=== PATIENT | male | born 1935 | race Caucasian/White ===

== ENCOUNTER → 2016-12-02 | Outpatient (CLI) | payer MEDICARE ==
[~2016-12-02] VITALS: Ht 165.1 cm; Wt 73.0 kg
[~2016-12-02] MED LIST: AMLO5TAB2 PO; ASP81TEC PO; ASPI-983 PO; ASPI-999 PO; ATOR20TA66 PO; ATOR40TA70 PO; BENA20TA72 PO; BNZ40T PO; CATHETER FLUSH 10 ML SYR IV PRN; CEFU500T PO; CLOP75TA28 PO; CYAN10006 PO; FELO5TAB3 PO; FISH1CAP15 PO; FRSM40T PO; HCT25T PO; L.AC1CAP6 PO; LOVA20TA2 PO; MAGN400C PO; MAGN400T39 PO; METF-380 PO; METF500T4 PO; METO-352 PO; MTP50T PO; NAPR220C11 PO; OMEP20CA12 PO; REGADENOSON 0.4 MG/5 ML SYR (LEXISCAN) IV ONE; SITA100T12 PO; SITA50TA PO; SPIR25TA3 PO; VIT B12 PO
[2016-12-02 09:06] VITALS: BP 144/80
[2016-12-02 09:08] VITALS: BP 161/82
--- NOTE | 2016-12-04 13:18 | STRESS TEST ---
PROCEDURE PHYSICIAN: MARILIA STEVENSON RESTING AND POST REGADENOSON TECHNETIUM 99M TETROFOSMIN SPECT CT IMAGING DATE OF PROCEDURE: 12/02/2016 ORDERING PHYSICIAN: Dr. Stevenson PRIMARY PHYSICIAN: Dr. Hartley CLINICAL DIAGNOSIS: Coronary artery disease, hypertension, hyperlipidemia. Baseline images were carried out after injection of 10.31 mCi technetium 99m tetrofosmin this was followed by 0.4 mg of regadenoson and 33 mCi of technetium 99m tetrofosmin for stress imaging. The electrocardiogram showed sinus rhythm with intermittent premature ventricular contractions. He tolerated the procedure well. Review of images at rest and following stress, indicates an inferoposterolateral perfusion defect that is partially transient. Gated images show inferoposterolateral hypokinesis that is severe. There is also mild global hypokinesis. Left ventricular ejection fraction is calculated to be 35%. Left ventricular end-diastolic volume is 147 mL, TID is absent (1.19). CONCLUSION: 1. Inferoposterolateral myocardial infarction with a small to moderate amount of florecita-infarct ischemia. 2. Inferoposterolateral severe hypokinesis. 3. Impairment of global left ventricular systolic function with a calculated ejection fraction of 35%. 4. Moderate cardiomegaly. Job ID: [id number] Dictated Date: 12/04/2016 09:28:02 Program Lead Date: 12/04/2016 13:10:19 / ashish
== END ==
LOC: CARD 07:48
PROVIDERS: ATTEND Internal Medicine Cardiovascular Disease
DX: I25.10 Atherosclerotic heart disease of native coronary artery without angina pectoris (principal); I25.5 Ischemic cardiomyopathy; I65.23 Occlusion and stenosis of bilateral carotid arteries; I44.2 Atrioventricular block, complete; E11.9 Type 2 diabetes mellitus without complications; Z95.0 Presence of cardiac pacemaker; Z87.891 Personal history of nicotine dependence; I10 Essential (primary) hypertension; E78.4 Other hyperlipidemia
CPT/HCPCS: 78452; 93017

== ENCOUNTER 2016-12-09 06:50 | Day surgery (SDC) | payer MEDICARE ==
[2016-12-09] VITALS (16 sets, daily range): BP systolic 92–153; BP diastolic 63–101
[~2016-12-09] VITALS: Ht 165.1 cm; Wt 73.0 kg
[~2016-12-09 06:50] MED LIST changes: -ASPI-983 PO; -ASPI-999 PO; -CATHETER FLUSH 10 ML SYR IV PRN; -CLOP75TA28 PO; -CYAN10006 PO; -L.AC1CAP6 PO; -MAGN400C PO; -METO-352 PO; -REGADENOSON 0.4 MG/5 ML SYR (LEXISCAN) IV ONE; -VIT B12 PO
[2016-12-09] MEDS ORDERED: LIDOCAINE 1% INJ 20 ML (XYLOCAINE) VIAL ONE (06:51)
[2016-12-09] MEDS ORDERED: HEParin (CATH LAB) 2,000 ML IV ONE (06:51)
[2016-12-09] MEDS ORDERED: NS IV 1000 ML 1,000 ML ONE (06:51)
[2016-12-09 07:25] LABS: MEAN PLATELET VOLUME 11.4 FL (7.4-10.4); RED CELL DISTRIBUTION WIDTH 12.4 % (10.0-14.5); WHITE BLOOD COUNT 8.9 10^3/uL (4.3-11.0)
[2016-12-09 07:34] LABS: INR 0.9 (0.8-1.4); PROTHROMBIN TIME PATIENT 12.1 SEC (12.2-14.7)
[2016-12-09] MEDS ORDERED: VIT B12 PO (07:39)
[2016-12-09] MEDS ORDERED: MAGN400C PO (07:39)
[2016-12-09] MEDS ORDERED: FLU TRIvalent (5 YOA+) 2016-17 (AFLURIA) 0.5 ML IM ONE (07:45)
[2016-12-09] MEDS ORDERED: NS IV 1000 ML 1,000 ML IV SCH ×2 (07:45→10:21)
[2016-12-09 07:47] LABS: ALANINE AMINOTRANSFERASE 24 U/L (0-55); ANION GAP 10 MMOL/L (5-14); ASPARTATE AMINO TRANSFERASE 19 U/L (5-34); BILIRUBIN,TOTAL 1.1 MG/DL (0.1-1.0); BLOOD UREA NITROGEN 15 MG/DL (7-18); BUN/CREATININE RATIO 17; CALCIUM 8.8 MG/DL (8.5-10.1); CARBON DIOXIDE 19 MMOL/L (21-32); CHLORIDE 110 MMOL/L (98-107); CHOLESTEROL 112 MG/DL (< 200); CREATININE SERUM 0.89 MG/DL (0.60-1.30); DIRECT LDL 59 MG/DL (1-129); GFR ESTIMATED > 60; GLUCOSE 136 MG/DL (70-105); POTASSIUM 4.2 MMOL/L (3.6-5.0); SODIUM 139 MMOL/L (135-145); TOTAL PROTEIN 6.7 G/DL (6.4-8.2); TRIGLYCERIDES 151 MG/DL (<150); VLDL CHOLESTEROL 30 MG/DL (5-40)
[2016-12-09] MEDS ORDERED: MIDAZOLAM 5 MG/5 ML (VERSED) VIAL ONE (08:02)
[2016-12-09] MEDS ORDERED: fentaNYL INJECTION 100 MCG/2 ML AMP ONE (08:03)
[2016-12-09] MEDS ORDERED: diphenhydrAMINE 50 MG/ML INJ (BENADRYL) ONE (08:03)
[2016-12-09] MEDS ORDERED: EPTIFIBATIDE BOLUS 20 ML IV ONE (08:51)
[2016-12-09] MEDS ORDERED: HEParin 1000 UNIT/ML (10ML VIAL) FOR BOLUS ONE (08:51)
[2016-12-09] MEDS ORDERED: NITROGLYCERIN DRIP 25 MG/D5W 250 ML IV ONE (08:51)
[2016-12-09] MEDS ORDERED: CLOPIDOGREL 300 MG (PLAVIX) TABLET PO ONE (09:46)
[2016-12-09] MEDS ORDERED: ASPIRIN 81 MG CHEW (CHILDREN'S ASA) ONE (09:46)
--- NOTE | 2016-12-09 10:04 | Cardiac Procedure Note-CS/ASA ---
Pre-Procedure Note Pre-Op Procedure Note H&P Reviewed The H&P was reviewed, patient examined and no changes noted. Date H&P Reviewed: Dec 09, 2016 Time H&P Reviewed: 08:40 Conscious Sedation Pre-Proced Time Reviewed: 08:40 ASA Class: 3 Airway Mallampati Classification: ([place] appropriate class) I. II. III, IV Lungs Heart ASA score ASA 1: a normal healthy patient ASA 2: a patient with a mild systemic disease (mid diabetes, controlled hypertension, obesity ASA 3: a patient with a severe systemic disease that limits activity (angina , COPD, prior Myocardial infarction) ASA 4: a patient with an incapacitating disease that is a constant threat to life (CHF, renal failure) ASA 5: a moribund patient not expected to survive 24 hrs. (ruptured aneurysm) ASA 6: a declared brain patient whose organs are being harvested. For emergent operations, add the letter E after the classification Grade 2 Sedation Plan: Analgesia, Amnesia, Plan communicated to team members, Discussed options with patient/fam, Discussed risks with patient/fam Note The patient is an appropriate candidate to undergo the planned procedure, sedation, and anesthesia. The patient immediately re-assessed prior to indication. MARILIA WRIGHT MD FACP FAC CCDS Dec 09, 2016 10:03
[2016-12-09] MEDS ORDERED: ACETAMINOPHEN 325 MG TABLET/CAPLET (TYLENOL) PO PRN (10:30)
[2016-12-09] MEDS ORDERED: PATIENT MAY USE OWN MEDS, ALL PO SCH (10:30)
[2016-12-09] MEDS: inSUlin (REGULAR) HUMAN 1 UNIT/0.01 ML (CHARGE PER UNIT) SC SCH ×3 (12:15→21:00)
[2016-12-09] MEDS ORDERED: ASPI-983 PO (13:24)
[2016-12-09] MEDS ORDERED: CYAN10006 PO (13:24)
[2016-12-09] MEDS ORDERED: L.AC1CAP6 PO (13:24)
[2016-12-09] MEDS: MAGNESIUM OXIDE (MAG-OX)400 MG TAB PO SCH (17:25)
[2016-12-09] MEDS ORDERED: meTOprolol TARTRATE 50 MG (LOPRESSOR) TAB PO SCH (19:00)
[2016-12-10 04:00] VITALS: BP 137/65
[2016-12-10 04:37] LABS: MEAN PLATELET VOLUME 11.5 FL (7.4-10.4); RED BLOOD COUNT 3.61 10^6/uL (4.35-5.85); RED CELL DISTRIBUTION WIDTH 12.6 % (10.0-14.5); WHITE BLOOD COUNT 6.5 10^3/uL (4.3-11.0)
[2016-12-10 04:52] LABS: ANION GAP 10 MMOL/L (5-14); BLOOD UREA NITROGEN 13 MG/DL (7-18); BUN/CREATININE RATIO 16; CALCIUM 8.1 MG/DL (8.5-10.1); CARBON DIOXIDE 20 MMOL/L (21-32); CHLORIDE 112 MMOL/L (98-107); CREATININE SERUM 0.81 MG/DL (0.60-1.30); GFR ESTIMATED > 60; GLUCOSE 119 MG/DL (70-105); POTASSIUM 4.2 MMOL/L (3.6-5.0); SODIUM 142 MMOL/L (135-145)
[2016-12-10] MEDS: inSUlin (REGULAR) HUMAN 1 UNIT/0.01 ML (CHARGE PER UNIT) SC SCH ×2 (05:17→11:00)
[2016-12-10] MEDS: MAGNESIUM OXIDE (MAG-OX)400 MG TAB PO SCH (05:33)
[2016-12-10] MEDS ORDERED: VITAMIN B PO SCH (07:00)
[2016-12-10] MEDS ORDERED: OMEPRAZOLE 20 MG (PriLOSEC) CAP NON-FORMULARY PO SCH (07:00)
[2016-12-10] MEDS ORDERED: MAGNESIUM OXIDE (MAG-OX)400 MG TAB PO SCH (07:00)
[2016-12-10] MEDS ORDERED: CLOPIDOGREL 75 MG (PLAVIX) TABLET PO SCH (09:00)
[2016-12-10] MEDS ORDERED: FUROSEMIDE 40 MG (LASIX) TAB PO SCH (09:00)
[2016-12-10] MEDS ORDERED: BENAZEPRIL 40 MG TABLET PO SCH (09:00)
[2016-12-10] MEDS ORDERED: ASPIRIN 81 MG CHEW (CHILDREN'S ASA) PO SCH (09:00)
[2016-12-10] MEDS ORDERED: amLODIPine 5 MG (NORVASC) TAB PO SCH (09:00)
[2016-12-10] MEDS ORDERED: SPIRONOLACTONE 25 MG (ALDACTONE) TAB PO SCH (09:00)
[2016-12-10] MEDS ORDERED: ATORVASTATIN 40 MG (LIPITOR) TABLET PO SCH (09:00)
[2016-12-10 09:07] VITALS: BP 159/83
--- NOTE | 2016-12-10 09:28 | Progress Note-Cardiology ---
Cardiology SOAP Progress Note Subjective: He feels well and doesn't report cp or palp or dyspnea or groin or leg discomfort Objective: I&O/Vital Signs Vital Sign - Last 12Hours 12/09/16 12/10/16 12/10/16 12/10/16 23:44 01:00 04:00 09:07 Temp 96.6 98.4 96.1 Pulse 60 60 69 62 Resp 16 20 18 B/P 127/64 137/65 159/83 Pulse Ox 96 97 97 O2 Delivery Room Air Room Air Room Air Intake and Output 12/10/16 00:00 Intake Total 1980 ml Output Total 625 ml Balance 1355 ml Weight (Pounds): 161 Weight (Ounces): 0.0 Weight (Calculated Kilograms): 73.036873 Groin site without hematoma: Yes Bruising: mild bruising Constitutional: AAO x 3 well-developed well-nourished Respiratory: No accessory muscle use, lungs clear to percussion lungs clear to auscultation Cardiovascular: regular rate-rhythm S1 and S2 systolic murmur (faint DIVINE at cardiac base) Gastrointestional: No tender, No guarding, No rebound, audible bowel sounds Extremities: No clubbing, No cyanosis, No significant edema Neurologic/Psychiatric: oriented x 3 grossly intact Skin: No rash on exposed areas, No ulcerations on exposed areas Results/Procedures: Labs Laboratory Tests 12/09/16 12:12: Glucometer 126H 12/09/16 17:10: Glucometer 147H 12/09/16 21:00: Glucometer 127H 12/10/16 03:55: Anion Gap 10, BUN/Creatinine Ratio 16, Blood Urea Nitrogen 13, Calcium Level 8.1L, Carbon Dioxide Level 20L, Chloride Level 112H, Creatinine 0.81, Estimat Glomerular Filtration Rate > 60, Glucose Level 119H, Hematocrit 37L, Hemoglobin 12.7L, Mean Corpuscular Hemoglobin 35H, Mean Corpuscular Hemoglobin Concent 35, Mean Corpuscular Volume 101H, Mean Platelet Volume 11.5H, Platelet Count 117L, Potassium Level 4.2, Red Blood Count 3.61L, Red Cell Distribution Width 12.6, Sodium Level 142, White Blood Count 6.5 Laboratory Tests 12/09/16 07:14 12/10/16 03:55 A/P: Assessment: CAD. Last cardiac catheterization was carried out on 12/09/15: severe mcgrath coronary artery disease. There was patent left internal mammary to the left anterior descending, occluded saphenous vein to a diagonal, occluded saphenous vein to an obtuse marginal, patent saphenous vein to distal right coronary with 80% mid-vessel stenosis that was successfully stented with Alpine Xience 3.5x18 stent on 12/09/15, LVEF was 30 to 35%, global hypokinesis of the left ventricle with diaphragmatic akinesis. PAD: angio of 12/09/16 showed occluded L anterior tibial and distally occluded R posterior tibial. There is two vessel runoff in both legs. 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 Advanced vs complete heart block on ECG of 01/24/16, without any syncope or presyncope. This remained irreversible despite dicontinuation of all rate-lowering meds for several weeks. Device is functioning normally per interrogation of 03-26-16 Chronic systolic congestive heart failure, currently clinically compensated. Echocardiogram from July 2015 showed LVEF to be 50%. Trivial to mild mitral and tricuspid regurgitation, PASP 30-35 mmHg Hypertension, currently fairly well controlled. Hyperlipidemia for which he is on atorvastatin Gastroesophageal reflux. Mild bilateral carotid arterial disease without evidence of hemodynamically significant stenosis per carotid ultrasound on August 28, 2014 Maturity onset diabetes mellitus. Sinus node dysfunction, chronic, asymptomatic. Chronic RBBB Tremors being followed by his PCP Chronic diarrhea, followed by his PCP Plan: * He has multiple comorbidities that are outlined above and about which I spoke with him in detail and answered questions * I reviewed risk factor modification with him and advised close outpatient f/u and compliance with meds MARILIA WRIGHT MD FACP [facility] CCDS Dec 10, 2016 09:28
[2016-12-10] MEDS ORDERED: ASPI-999 PO (09:41)
[2016-12-10] MEDS ORDERED: METO-352 PO (09:41)
[2016-12-10] MEDS ORDERED: CLOP75TA28 PO (09:41)
--- NOTE | 2016-12-10 09:42 | Discharge Inst-Post CATH ---
Discharge Inst-CATH Post Cardiac Cath D/C Inst Follow Up/Plan F/u with Dr Stevenson in one week CARDIAC CATH DISCHARGE INSTRUCTIONS *Hold Metformin for 48 hours post heart cath. ACTIVITY * Go Home directly and rest. * Limit activity of the leg (or wrist if it was used) for 7 days including aerobics, swimming, jogging, bicycling, etc. * Restrict stair-climbing for 7 days if possible, if not, climb up with your non -cath leg, then bring together on the same step. * Avoid lifting, pushing, pulling or excessive movement of the affected extremity for 7 days. * Customary sexual activity may be resumed after 2 days-use caution not to use a position that strains or causes pain to the affected extremity. * No driving for 24 hours. * NO SMOKING. * Avoid straining for bowel movements for 7 days. * Gentle walking on level ground is allowed. * Returning to work will depend on the type of procedure and the results. Your doctor will discuss this with you. CALL YOUR DOCTOR FOR ANY OF THE FOLLOWING: *If bleeding from the puncture site occurs- Apply gentle pressure to site with clean cloth and call your doctor or EMS. * If a knot or lump forms under the skin, increases in size, or causes pain. * If bruising appears to be worsening or moving further down your leg instead of disappearing. * Temperature above 101 F. CARE OF YOUR GROIN INCISION; * Bruising or purple discoloration of the skin near the puncture site is common. * You may shower only, no bathtub bathing for 5 days. Be careful to avoid slipping as your leg may feel stiff. * If a closure device was used on your femoral artery, please see the attached guide regarding care of the device and your leg. * REMOVE the dressing from your groin the next day after your procedure in the shower. CARE OF YOUR WRIST INCISION; * Bruising or purple discoloration of the skin near the puncture site is common. * You may shower. * DO NOT submerge wrist. * Remove dressing in 24 hours. MARILIA STEVENSON MD [facility] CCDS Dec 10, 2016 09:42
--- NOTE | 2016-12-10 09:43 | Discharge Inst-Cardiology ---
Discharge Inst-Cardiac Discharge Medications New Medications: Aspirin (Aspirin) 81 Mg Tab.chew 81 MG PO DAILY #90 Ref 3 TAB Metoprolol Succinate (Toprol Xl) 50 Mg Tab.er.24h 50 MG PO DAILY #90 Ref 3 TAB Clopidogrel Bisulfate (Clopidogrel) 75 Mg Tablet 75 MG PO DAILY #90 Ref 3 TAB Continued Medications: Atorvastatin Calcium (Atorvastatin Calcium) 40 Mg Tablet 40 MG PO DAILY TAB Benazepril Hcl (Lotensin 40 Mg) 40 Mg Tablet 40 MG PO DAILY TAB Cyanocobalamin (Vitamin B-12) (Vitamin B-12) 1,000 Mcg Tablet 1000 MCG PO DAILY TAB Furosemide (Lasix Tab) 40 Mg Tab 40 MG PO MoWeFr L.acidoph & Paracasei,B.lactis (Probiotic) 1 Each Capsule 1 CAP PO BID CAP Magnesium Oxide (Magnesium) 400 Mg Capsule 400 MG PO BID CAP Metformin Hcl (Metformin 1000 Mg) 1,000 Mg Tablet 1000 MG PO BID WITH MEALS Metformin HCl (Metformin HCl) 500 Mg Tablet 500 MG PO DAILY AT NOON TAB Omeprazole (Omeprazole) 20 Mg Capsule.dr 20 MG PO DAILY@1900 Sitagliptin Phosphate (Januvia) 100 Mg Tablet 100 MG PO DAILY TAB Spironolactone (Spironolactone) 25 Mg Tablet 25 MG PO MoWeFr Discontinued Medications: Aspirin (Aspirin EC) 81 Mg Tablet.dr 81 MG PO DAILY TAB Metoprolol Tartrate (Metoprolol Tartrate 50 Mg) 50 Mg Tablet 50 MG PO DAILY Patient Instructions Patient Instructions: HOLD METFORMIN UNTIL TOMORROW MORNING MARILIA WRIGHT MD FACP FAC CCDS Dec 10, 2016 09:43
--- NOTE | 2016-12-10 10:25 | CARDIAC CATHETERIZATION ---
PROCEDURE PHYSICIAN: MARILIA WRIGHT CORONARY CATHETERIZATION AND CORONARY INTERVENTION AND PERIPHERAL ARTERIAL ANGIOGRAPHY REPORT: DATE OF PROCEDURE: 12/09/2016 Nate Alexander is a 81-year-old man with known coronary artery disease, history of coronary artery bypass surgery, history of cardiomyopathy and bilateral leg discomfort suggestive of leg claudication. Myocardial perfusion being carried out recently has shown posterolateral myocardial infarction with moderate florecita-infarct ischemia. Segmental pressures of the lower leg arterial circulation has indicated severe distal disease. An informed consent was obtained for cardiac catheterization, possible ad hoc coronary graft intervention, peripheral angiography, ad hoc peripheral arterial intervention. The procedure was carried out today. PROCEDURE: He was brought to the cardiac catheterization during a fasting state. The right groin was prepared and draped in usual sterile fashion. 1% lidocaine was used for local anesthesia. Modified Seldinger technique was used to advance a 5-Lebanese sheath into the right femoral artery. 5-Lebanese JL4 catheter was used for left coronary angiography, 5-Lebanese JL3.5 catheter was also used for left coronary angiography later during the procedure. 5-Lebanese JL4 catheter was used for angiography of the saphenous vein graft. Right coronary artery itself is known to be subtotally occluded in proximal and midportion and it was not selectively engaged at the time of this cardiac catheterization. A 5-Lebanese CRYS catheter was used for angiography of the left internal mammary artery graft to the left anterior descending artery. A 5-Lebanese pigtail catheter was used for left heart catheterization and ventricular angiography after intervention had been performed to the saphenous vein graft to the right coronary artery. PERCUTANEOUS INTERVENTION TO THE SAPHENOUS VEIN GRAFT OF THE RIGHT CORONARY ARTERY: Following diagnostic coronary and graft angiography, we carried out percutaneous intervention to the saphenous vein graft to the right coronary artery which was exhibiting up to 80% mid vessel stenosis. We exchanged the sheath over a wire for a 6-Lebanese sheath. 5,000 units of intravenous heparin and a double bolus of Integrilin. We used a 6-Lebanese JR4 guide catheter with side holes to engage the graft. We advanced a filter wire across the lesion and the filter was deployed in the distal part of the saphenous vein graft and the sheath removed. We advanced Alpine Xience 3.5 x 28 mm stent to the lesion in the saphenous vein graft and the stent was deployed at 20 atmospheres. Full stent expansion was achieved. The stent balloon was removed. We used the retrieval sheath to remove the central wire. Subsequent angiography revealed 0% residual stenosis at the previous site of up to 80% stenosis and flow throughout the graft and the distal right coronary artery was normal. Subsequently, we performed repeat angiography of the left anterior descending artery with JL3.5 catheter and left heart catheterization and left ventricular angiography with a 5-Lebanese pigtail catheter. ABDOMINAL AORTIC ANGIOGRAPHY: Abdominal aortic angiography was carried out with the pigtail catheter positioned at the level of L1. BILATERAL LEG ARTERY ANGIOGRAPHY: Bilateral leg artery angiography was performed with the pigtail catheter positioned just proximal to the bifurcation of the aorta into the iliac arteries and runoff was performed down to the level of the ankles. Following the completion of this procedure, we removed the pigtail catheter and angiography of the right femoral artery was performed through the sheath. Mynx was used to achieve hemostasis. He tolerated the procedure well. CORONARY ANGIOGRAPHY: Left main coronary artery has 50% proximal stenosis. Left anterior descending artery is occluded in its midportion. The first diagonal branch of the left anterior descending artery was approximately 60% proximal stenosis. The left circumflex artery is small and nondominant and has approximately 90% proximal to mid vessel stenosis. The right coronary is dominant. It was not selectively engaged at the time of this cardiac catheterization. It is previously known to have subtotal occlusion in the proximal and mid portions. LEFT VENTRICULAR ANGIOGRAPHY: Left ventricular angiography was carried out in the right anterior oblique projection. Global left ventricular systolic function is impaired. Left ventricular ejection fraction of 30%. There is akinesis of the posterior and diaphragmatic shelley of the left ventricle. The rest of the left ventricular shelley exhibit mild to moderate hypokinesis. There does not appear to be significant mitral regurgitation. SAPHENOUS VEIN GRAFT ANGIOGRAPHY: Saphenous vein graft to a diagonal branch and to an obtuse marginal branch are occluded in the proximal portion. The saphenous vein graft to distal right coronary artery is patent and is exhibiting 80% mid vessel stenosis, which was successfully stented with Alpine Xience 3.5 x 28 mm stent with reduction of stenosis to 0% residual. The right coronary artery distal to the insertion of the graft has approximately 50% stenoses. LEFT INTERNAL MAMMARY ARTERY GRAFT ANGIOGRAPHY: Left internal mammary artery graft of the distal left anterior descending artery is widely patent and free of significant disease and there is good distal runoff. ABDOMINAL AORTIC ANGIOGRAPHY: Abdominal aortic angiography indicates abdominal aortic atherosclerosis and calcification. The renal arteries do not exhibit significant stenosis. Mesenteric vessels do not exhibit significant stenosis. There is considerable calcification of the aortoiliac bifurcation without significant obstructive disease. BILATERAL LEG ARTERY ANGIOGRAPHY ON THE RIGHT SIDE: The iliac arteries and the femoral arteries are intact. There is moderate diffuse disease at the right superficial femoral artery. The right posterior tibial artery has 80 to 90% proximal stenosis and is occluded in its distal portion. The anterior tibial and peroneal arteries on the right side have diffuse, moderate disease. On the left side, the iliac arteries and the femoral arteries are intact. The left superficial femoral artery has moderate diffuse disease. The left anterior tibial artery is occluded in its proximal portion. The left peroneal artery and the left posterior tibial arteries have 70 to 80% stenoses in the proximal and mid portions. CONCLUSIONS: 1. Severe coronary artery disease as detailed above. 2. Occluded saphenous vein grafts to left anterior descending and left circumflex arteries. 3. Patent saphenous vein graft to the right coronary artery which was severely diseased in its proximal midportion and to which successful stenting was carried out with Ecoark Xience 3.5 x 28 mm stent on 12/09/2016 with reduction of stenosis to 0% residual. 4. Patent left internal mammary artery graft of left anterior descending artery. 5. Impairment of global left ventricular systolic function with an ejection fraction of approximately 30% and with global hypokinesis and inferoposterior and diaphragmatic akinesis. 6. No significant mitral regurgitation. 7. Mild elevation of left ventricular end-diastolic pressure. 8. Peripheral arterial disease consisting of occluded anterior tibial on the left side and moderately severe disease of the peroneal and posterior tibial arteries on the left side. On the right side, there is severe proximal disease of the posterior tibial and distal occlusion of the posterior tibial. DISCUSSION AND RECOMMENDATION: Following today's intervention, Clopidogrel has been added to the regimen. The rest of the previous regimen is being continued. Outpatient follow-up is advised. We will consider peripheral intervention, if dictated by symptoms, at a later date. If there are issues with an angina, consideration can be given to percutaneous intervention to the proximal left main coronary artery which exhibits moderate to moderately severe disease. Job ID: [id number] Dictated Date: 12/09/2016 10:16:01 Tobacco Blender Date: 12/10/2016 09:26:00 / ashish DIANE
[2016-12-10 12:00] VITALS: BP 159/83
== END 2016-12-10 12:00 | disposition home or self-care (01) ==
LOC: CATH 06:50 → ICU 10:20 → CATH 12-10 12:00
PROVIDERS: ATTEND Nurse Practitioner Family
DX: I25.10 Atherosclerotic heart disease of native coronary artery without angina pectoris (principal); I25.82 Chronic total occlusion of coronary artery; T82.857A Stenosis of other cardiac prosthetic devices, implants and grafts, initial encounter; I70.0 Atherosclerosis of aorta; I70.203 Unspecified atherosclerosis of native arteries of extremities, bilateral legs; I70.92 Chronic total occlusion of artery of the extremities; I10 Essential (primary) hypertension; E78.5 Hyperlipidemia, unspecified; E11.9 Type 2 diabetes mellitus without complications; I49.5 Sick sinus syndrome; K21.9 Gastro-esophageal reflux disease without esophagitis; Z95.0 Presence of cardiac pacemaker; Z79.899 Other long term (current) drug therapy
CPT/HCPCS: 36415; 75625; 75716; 80048; 80053; 80061; 82962; 85027; 85610; 85730; 87081; 90471; 93005; 93459

== ENCOUNTER → 2016-12-17 | Outpatient (CLI) | payer MEDICARE ==
[~2016-12-17] MED LIST changes: +ASPI-983 PO; +ASPI-999 PO; +CLOP75TA28 PO; +CYAN10006 PO; +L.AC1CAP6 PO; +MAGN400C PO; +METO-352 PO; +VIT B12 PO
--- OUTSIDE RECORDS SUMMARY | 2016-12-17 11:11 | XMS REPORT | Continuity of Care Document ---
Author Author [facility] Organization [facility] Address Unknown Phone Unavailable Care Team Providers Care Door Repairman Name Role Phone AMRGIE STRATTON MD PCP Insurance Providers Payer Name Policy Number Subscriber Name Relationship [employer] Medicare [id number] Nate Alexander 18 Self / Same As Patient [facility] [id number] Nate Alexander 18 Self / Same As Patient Advance Directives Directive Response Recorded Date/Time Advance Directives No 12/09/16 7:00am Health Care Power of Anatomical Embalmer No 12/09/16 7:00am Organ Donor No 12/09/16 7:00am Resuscitation Status Full Code 12/09/16 7:00am Problems Active Problems Medical Problem Onset Date Status Pacemaker Unknown Acute Medications Current Home Medications Medication Dose Units Route Directions Days/Qty Instructions Start Date Omeprazole 20 Mg 20 Mg Oral Daily@1900 01/17/13 Metformin Hcl (Glucophage) 1,000 Mg 1,000 Mg Oral Twice A Day With Meals 01/17/13 Furosemide 40 Mg 40 Mg Oral Every Thursday, Thursday, And Thursday Spironolactone 25 Mg 25 Mg Oral Every Thursday, Thursday, And Thursday02/08/13 Benazepril Hcl 40 Mg 40 Mg Oral Daily 05/09/14 Atorvastatin Calcium 40 Mg 40 Mg Oral Daily 02/26/16 Sitagliptin Phosphate 100 Mg 100 Mg Oral Daily 02/26/16 Metformin Hcl 500 Mg 500 Mg Oral Daily At Noon 02/26/16 Magnesium Oxide 400 Mg 400 Mg Oral Twice A Day 12/09/16 Cyanocobalamin (Vitamin B-12) 1,000 Mcg 1,000 Mcg Oral Daily L.acidoph & Paracasei,B.lactis 1 Each 1 Cap Oral Twice A Day Clopidogrel Bisulfate 75 Mg 75 Mg Oral Daily 12/10/16 Aspirin 81 Mg 81 Mg Oral Daily 12/10/16 Metoprolol Succinate 50 Mg 50 Mg Oral Daily 12/10/16 Past Home Medications Medication Directions Ordered Status Fish Oil/Dha/Epa 1 Each Capsule, 1200 Mg Oral Twice A Day 01/17/13 Discontinued Metoprolol Tartrate (Lopressor) 50 Mg Tablet, 50 Mg Oral Daily 01/17/13 Discontinued Hydrochlorothiazide 25 Mg Tab, 25 Mg Oral Daily 01/17/13 Discontinued Benazepril Hcl 20 Mg Tablet, 20 Mg Oral Daily 01/17/13 Discontinued Felodipine 5 Mg Tab.sr.24h, 5 Mg Oral Daily 01/17/13 Discontinued Aspirin 81 Mg Tabec, 81 Mg Oral Daily 01/17/13 Discontinued Naproxen Sodium 220 Mg Capsule, 220 Mg Oral As Needed 01/17/13 Discontinued Atorvastatin 20 Mg Tablet, 20 Mg Oral Daily 05/09/14 Discontinued Sitagliptin Phosphate 50 Mg Tablet, 1 Each Oral Daily 05/09/14 Discontinued Naproxen Sodium 220 Mg Capsule, 220 Mg Oral As Needed 05/09/14 Discontinued Amlodipine Besylate 5 Mg Tablet, 5 Mg Oral Daily 02/26/16 Discontinued Magnesium Oxide 400 Mg Tablet, 800 Mg Oral Daily 02/26/16 Discontinued Cefuroxime Axetil 500 Mg Tablet, 500 Mg Oral Twice A Day 02/27/16 Discontinued [Vit B12] , 1000 Mcg Oral Daily 12/09/16 Discontinued Aspirin 81 Mg Tablet.dr, 81 Mg Oral Daily 12/09/16 Discontinued Social History Social History Problem Response Recorded Date/Time Recent Foreign Travel No 12/09/2016 7:00am Recent Infectious Disease Exposure No 12/09/2016 7:00am Smoking Status Never a Smoker 12/09/2016 7:01am Query Response Start Date Stop Date Smoking Status Never a Smoker Hospital Discharge Instructions Patient Instructions Physician Instructions Follow Up/Plan F/u with Dr Stevenson in one week CARDIAC CATH DISCHARGE INSTRUCTIONS *Hold Metformin for 48 hours post heart cath. ACTIVITY * Go Home directly and rest. * Limit activity of the leg (or wrist if it was used) for 7 days including aerobics, swimming, jogging, bicycling, etc. * Restrict stair-climbing for 7 days if possible, if not, climb up with your non-cath leg, then bring together on the same step. * Avoid lifting, pushing, pulling or excessive movement of the affected extremity for 7 days. * Customary sexual activity may be resumed after 2 days-use caution not to use a position that strains or causes pain to the affected extremity. * No driving for 24 hours. * NO SMOKING. * Avoid straining for bowel movements for 7 days. * Gentle walking on level ground is allowed. * Returning to work will depend on the type of procedure and the results. Your doctor will discuss this with you. CALL YOUR DOCTOR FOR ANY OF THE FOLLOWING: *If bleeding from the puncture site occurs- Apply gentle pressure to site with clean cloth and call your doctor or EMS. * If a knot or lump forms under the skin, increases in size, or causes pain. * If bruising appears to be worsening or moving further down your leg instead of disappearing. * Temperature above 101 F. CARE OF YOUR GROIN INCISION; * Bruising or purple discoloration of the skin near the puncture site is common. * You may shower only, no bathtub bathing for 5 days. Be careful to avoid slipping as your leg may feel stiff. * If a closure device was used on your femoral artery, please see the attached guide regarding care of the device and your leg. * REMOVE the dressing from your groin the next day after your procedure in the shower. CARE OF YOUR WRIST INCISION; * Bruising or purple discoloration of the skin near the puncture site is common. * You may shower. * DO NOT submerge wrist. * Remove dressing in 24 hours. Patient Instructions: HOLD METFORMIN UNTIL TOMORROW MORNING Care Plan Patient Instructions:: HOLD METFORMIN UNTIL TOMORROW MORNING Plan of Care Discharge Date 12/10/16 12:00pm Instructions/Education Provided CARDIAC CATH DISCHARGE INSTRUC Prescriptions See Medication Section Functional Status Query Response Date Recorded Patient Orientation Person Place Time Situation December 10, 2016 12:57pm Comprehension Ability Understands Concepts December 10, 2016 9:00am Allergies, Adverse Reactions, Alerts No known allergies. Immunizations Name Given Type FLU TRIvalent 5 years - Adult 12/10/16 Administered Vital Signs Acute Vital Signs Vital Response Date/Time Temperature (Fahrenheit) 96.1 degrees F (97.6 - 99.5) 12/10/2016 12:00pm Temperature (Calculated Celsius) 35.81797 degrees C (36.4 - 37.5) 12/10/2016 9:07am Temperature Source Tympanic 12/10/2016 12:00pm Pulse Rate (adult) 62 bpm (60 - 90) 12/10/2016 12:00pm Respiratory Rate 18 bpm (12 - 24) 12/10/2016 12:00pm O2 Sat by Pulse Oximetry 97 % (88 - 100) 12/10/2016 12:00pm Blood Pressure 159/83 mm Hg 12/10/2016 12:00pm Blood Pressure Mean 108 mm Hg 12/10/2016 9:07am Pain Numeric Pain Scale 0-No Pain 12/10/2016 12:00pm Height (Feet) 5 feet 12/09/2016 7:00am Height (Inches) 5.00 inches 12/09/2016 7:00am Height (Calculated Centimeters) 165.208387 cm 12/09/2016 7:00am Weight (Pounds) 161 pounds 12/09/2016 7:00am Weight (Ounces) 0.0 oz 12/09/2016 7:00am Weight (Calculated Grams) 33517.37 gm 12/09/2016 7:00am Weight (Calculated Kilograms) 73.710595 kilograms 12/09/2016 7:00am Calculated BMI 26.8 12/09/2016 7:00am Capillary Refill Capillary Refill Less Than 3 Seconds 12/09/2016 4:00pm Results Pending Laboratory Results Test Name Collection Date/Time Procedures Procedure Status Date Provider(s) Tracing only of electrocardiogram Completed 12/09/16 MARILIA STEVENSON MD, FACP [facility] Tracing only of electrocardiogram Active 12/10/16 MARILIA STEVENSON MD FAC [facility] Encounters Encounter Location Arrival/Admit Date Discharge/Depart Date Attending Provider Departed [facility] 12/09/16 6:50am 12:00pm PATRICIA BAH Registered Clinic [facility] 12/02/16 7:48am MARILIA STEVENSON [facility]
--- NOTE | 2016-12-17 12:00 | Diagnostic Imaging Report ---
Arterial vascular ultrasound of the right groin. INDICATION: Right groin swelling after cardiac catheterization. FINDINGS: The common femoral artery and vein are both patent with biphasic arterial waveforms seen in the ACUTE CARE ASSISTANT. There are normal venous waveforms. There is no significant hematoma seen. No pseudoaneurysm. IMPRESSION: No evidence of pseudoaneurysm or AV fistula seen. Dictated by: Dictated on workstation # [id number]
== END ==
LOC: RAD 11:08
PROVIDERS: ATTEND Nurse Practitioner Family
DX: I25.10 Atherosclerotic heart disease of native coronary artery without angina pectoris (principal); I25.5 Ischemic cardiomyopathy; I65.23 Occlusion and stenosis of bilateral carotid arteries; I73.89 Other specified peripheral vascular diseases; R10.84 Generalized abdominal pain
CPT/HCPCS: 93926

== ENCOUNTER → 2016-12-26 | Outpatient (CLI) | payer MEDICARE ==
[~2016-12-26] MED LIST changes: +CATHETER FLUSH 10 ML SYR IV PRN; +HEParin (CENTRAL IV FLUSH) 500 UNIT/5 ML SYR ONE
--- OUTSIDE RECORDS SUMMARY | 2016-12-26 11:34 | XMS REPORT | Continuity of Care Document ---
Author Author [facility] Organization [facility] Address Unknown Phone Unavailable Care Team Providers Care Senior Care Specialist Name Role Phone MARGIE STRATTON MD PCP Insurance Providers Payer Name Policy Number Subscriber Name Relationship [employer] [id number] Nate Alexander 18 Self / Same As Patient [facility] [id number] Nate Alexander 20 Self / Same As Patient Advance Directives Directive Response Recorded Date/Time Advance Directives No 12/09/16 7:00am Health Care Power of Agricultural Technician No 12/09/16 7:00am Organ Donor No 12/09/16 [...] - 99.5) 12/10/2016 12:00pm Temperature (Calculated Celsius) 35.15369 degrees C (36.4 - 37.5) 12/10/2016 9:07am [...] 5.00 inches 12/09/2016 7:00am Height (Calculated Centimeters) 165.596598 cm 12/09/2016 7:00am Weight (Pounds) 161 pounds 12/09/2016 7:00am Weight (Ounces) 0.0 oz 12/09/2016 7:00am Weight (Calculated Grams) 74323.37 gm 12/09/2016 7:00am Weight (Calculated Kilograms) 73.703943 kilograms 12/09/2016 7:00am Calculated BMI 26.8 12/09/2016 7:00am Capillary Refill Capillary Refill Less Than 3 Seconds 12/09/2016 4:00pm Results Pending Laboratory Results Test Name Collection Date/Time Procedures Procedure Status Date Provider(s) Tracing only of electrocardiogram Completed 12/09/16 MARILIA STEVENSON MD, FACP [facility] Tracing only of electrocardiogram Active 12/10/16 MARILIA STEVENSON MD FAC [facility] Encounters Encounter Location Arrival/Admit Date Discharge/Depart Date Attending Provider Departed [facility] 12/09/16 6:50am 12:00pm PATRICIA BAH Registered Clinic [facility] 12/02/16 7:48am MARILIA STEVENSON [facility]PS [facility]
--- NOTE | 2016-12-31 09:46 | Diagnostic Imaging Report ---
PROCEDURE PHYSICIAN: MARILIA WRIGHT DATE OF PROCEDURE: 12/26/2016 RADIONUCLIDE VENTRICULOGRAPHY: ORDERING PHYSICIAN: Usha Montana APRN PRIMARY PHYSICIAN: Dr. Hartley CLINICAL DIAGNOSIS: Ischemic cardiomyopathy. Radionuclide ventriculography was carried out using autologous red blood cells tagged with 27.8 mCi of technetium 99m. Gated images show posterobasal and basal septal hypokinesis to akinesis. Left ventricular ejection fraction is calculated to be 30%. CONCLUSIONS: 1. Impairment of global left ventricular systolic function with a calculated ejection fraction 30%. 2. Posterobasal and basal septal akinesis. Job ID: [id number] Dictated Date: 12/31/2016 08:35:28 Programs Assistant Date: 12/31/2016 09:34:14 / rajat
--- NOTE | 2016-12-31 10:00 | ECHOCARDIOGRAPHY REPORT ---
PROCEDURE PHYSICIAN: MARILIA WRIGHT DATE OF PROCEDURE: 12/26/2016 TWO DIMENSIONAL ECHOCARDIOGRAM REPORT PRIMARY PHYSICIAN: Dr. Hartley OTHER PHYSICIAN: REFERRING PHYSICIAN: ORDERING PHYSICIAN: Usha Montana APRN INDICATION FOR THE PROCEDURE: Ischemic cardiomyopathy. MEASUREMENTS DERIVED VALUES LV DIAMETER (LAX) NORMALS NORMALS Diastolic 5.5 (3.6-5.2) Eject. Fract. (60%+/-6%) Systolic (2.3-3.9) Diastolic Vol. % Shortening (0.22-0.42) Systolic Vol. Aortic Root 3.2 IVS THICKNESS Diastolic 1.5 (0.6-1.1) LVPW THICKNESS Diastolic 1.3 (0.6-1.1) LA DIAMETER Systolic 5.8 (2.1-3.7) DESCRIPTION: Two-dimensional echocardiography shows impairment of global left systolic function. There is septal and posterobasal hypokinesis to akinesis. Left ventricular ejection fraction is approximately 30%. Aortic, mitral and tricuspid valve leaflets show good leaflet excursion. Aortic valve appears to be trileaflet. There is mild to moderate concentric left ventricular hypertrophy. Doppler imaging shows mild mitral and tricuspid regurgitation. Pulmonary artery systolic pressure is estimated to be 35 to 40 mmHg. There is no Doppler evidence of significant valvular stenosis. Mitral inflow is consistent with grade 1 diastolic dysfunction of the left ventricle. There is no evidence of significant intracardiac shunt on this transthoracic study. Inferior vena cava does not appear to be dilated. CONCLUSIONS: 1. Cardiomyopathy, consistent with ischemic cardiomyopathy, consisting of septal and posterobasal hypokinesis to akinesis and left ventricular ejection fraction of approximately 30%. 2. Mild diastolic dysfunction of the left ventricle. 3. Mild mitral and tricuspid regurgitation. 4. No evidence of significant valvular stenosis. 5. Pulmonary artery systolic pressure is estimated 35 to 40 mmHg. Job ID: [id number] Dictated Date: 12/31/2016 08:46:03 Leadlighter Date: 12/31/2016 09:54:53 / rajat
== END ==
LOC: CARD 11:31
PROVIDERS: ATTEND Nurse Practitioner Family
DX: I25.5 Ischemic cardiomyopathy (principal)
CPT/HCPCS: 78472; 93306

== ENCOUNTER → 2017-03-25 | Outpatient (CLI) | payer MEDICARE ==
[~2017-03-25] MED LIST changes: -CATHETER FLUSH 10 ML SYR IV PRN; -HEParin (CENTRAL IV FLUSH) 500 UNIT/5 ML SYR ONE
--- NOTE | 2017-03-26 13:36 | ECHOCARDIOGRAPHY REPORT ---
DATE OF SERVICE: 03/25/2017 DATE OF SERVICE: 03/25/2017. ORDERING PHYSICIAN: Usha Montana APRN. PRIMARY PHYSICIAN: Dr. Hartley. OTHER PHYSICIAN: Dr. Wright. CLINICAL DIAGNOSES: Ischemic cardiomyopathy. MEASUREMENTS: Left atrium 4.9. Aortic root 3.4. LV diameter diastolic 5.3. IVS thickness, diastolic 1.6. LVPW thickness, diastolic 1.4. DESCRIPTION: Two-dimensional echocardiography shows impairment of global left ventricular systolic function. There is posterobasal septal hypokinesis to akinesis. Left ventricular ejection fraction is approximately 40%. Aortic, mitral and tricuspid valve leaflets show good leaflet excursion. There is mild aortic valve sclerosis. There is no significant pericardial effusion. Doppler imaging shows mild mitral and tricuspid regurgitation. Mitral inflow is consistent with grade 1 diastolic dysfunction of the left ventricle. Echo dense structures within the right heart are consistent with pacemaker lead/leads. There is no evidence of any significant intracardiac shunt on this transthoracic echocardiographic study. Inferior vena cava is of normal size and appears mostly collapsed during the study. Pulmonary artery systolic pressure is estimated to be approximately 30 mmHg. CONCLUSION: 1. Impairment of global left ventricular systolic function with an ejection fraction of approximately 40%. 2. Posterobasal and septal hypokinesis to akinesis. 3. Mild diastolic dysfunction of left ventricle. 4. Mild to moderate concentric left ventricular hypertrophy. 5. Mild enlargement of the left atrium. 6. Mild mitral and tricuspid regurgitation. 7. Pulmonary artery systolic pressure is estimated to approximately 30 mmHg. 8. Mild aortic valve sclerosis without evidence of any significant valvular stenosis. Job ID: [id number] DocumentID: [id number] Dictated Date: 03/26/2017 13:03:12 Gallery Manager Date: 03/26/2017 13:27:47 Dictated By: MARILIA WRIGHT MD, MA, FACP, FACC,
== END ==
LOC: CARD 14:39
PROVIDERS: ATTEND Nurse Practitioner Family
DX: I25.10 Atherosclerotic heart disease of native coronary artery without angina pectoris (principal); I25.5 Ischemic cardiomyopathy; I50.22 Chronic systolic (congestive) heart failure; I65.23 Occlusion and stenosis of bilateral carotid arteries
CPT/HCPCS: 93306

== ENCOUNTER → 2017-06-08 | Outpatient (CLI) | payer MEDICARE ==
--- NOTE | 2017-06-08 11:17 | Diagnostic Imaging Report ---
3 views of the lumbar spine. INDICATION: Low back pain. Fall. FINDINGS: There is right convexity scoliosis of the lumbar spine with advanced degenerative changes. The vertebral body heights are preserved. There is disc desiccation and vacuum phenomenon at multiple levels. There are multiple prominent anterior osteophytes. Posterior osteophytes at L1-2 appears to be present. There are prominent vascular calcifications seen. There are surgical clips in the pelvis and radiopaque markers of hernia mesh repair in the left inguinal region. There is advanced degenerative changes in the right hip. IMPRESSION: Scoliosis and prominent degenerative disc changes in the lumbar spine. Dictated by: Dictated on workstation # [id number]
== END ==
LOC: RAD 10:27
PROVIDERS: ATTEND Nurse Practitioner Family
DX: M41.26 Other idiopathic scoliosis, lumbar region (principal); M51.36 Other intervertebral disc degeneration, lumbar region
CPT/HCPCS: 72100

== ENCOUNTER → 2018-02-01 | Outpatient (CLI) | payer MEDICARE | LOC: CARD 13:19 | PROVIDERS: ATTEND Internal Medicine Cardiovascular Disease | DX: I25.5 Ischemic cardiomyopathy (principal); I25.10 Atherosclerotic heart disease of native coronary artery without angina pectoris; I50.22 Chronic systolic (congestive) heart failure; I44.2 Atrioventricular block, complete; I73.9 Peripheral vascular disease, unspecified; E78.5 Hyperlipidemia, unspecified; E11.9 Type 2 diabetes mellitus without complications | CPT/HCPCS: 93306 ==

== ENCOUNTER → 2018-02-19 | Outpatient (CLI) | payer MEDICARE ==
[~2018-02-19] MED LIST changes: +CATHETER FLUSH 10 ML SYR IV PRN; +HEParin (CENTRAL IV FLUSH) 500 UNIT/5 ML SYR ONE
== END ==
LOC: CARD 13:41
PROVIDERS: ATTEND Nurse Practitioner Family
DX: I50.22 Chronic systolic (congestive) heart failure (principal); I25.5 Ischemic cardiomyopathy
CPT/HCPCS: 78472

== ENCOUNTER → 2019-03-15 | Outpatient (CLI) | payer MEDICARE ==
[~2019-03-15] VITALS: Ht 165.1 cm; Wt 74.4 kg
[~2019-03-15] MED LIST changes: -AMLO5TAB2 PO; +AMLO5TAB9 PO; -HEParin (CENTRAL IV FLUSH) 500 UNIT/5 ML SYR ONE; +METF-397 PO; -METF500T4 PO; +REGADENOSON 0.4 MG/5 ML SYR (LEXISCAN) IV ONE
[2019-03-15 09:23] VITALS: BP 141/81
[2019-03-15 09:25] VITALS: BP 150/79
--- NOTE | 2019-03-17 15:33 | STRESS TEST ---
DATE OF SERVICE: 03/15/2019 RESTING AND POST REGADENOSON TECHNETIUM-99M TETROFOSMIN SPECT CT IMAGING CLINICAL DIAGNOSIS: Coronary artery disease. Baseline images were carried out after injection of 10.99 mCi of technetium-99m Tetrofosmin. This was followed by 0.4 mg of Regadenoson and 30.9 mCi of technetium-99m Tetrofosmin for stress imaging. The electrocardiogram showed a paced atrial rhythm and atypical left bundle branch block. The electrocardiogram did not change significantly with the Regadenoson infusion. The patient noted some shortness of breath and had discomfort during the Regadenoson infusion, which resolved in a few minutes. Review of images at rest and following stress indicate a predominantly fixed lateral perfusion defect. There is lateral akinesis. Left ventricular ejection fraction is calculated to be 34%. Left ventricular end diastolic volume is 138 mL. TID is absent (1.06). CONCLUSIONS: 1. Lateral wall infarction with a small amount of florecita-infarct ischemia. 2. Lateral akinesis. 3. Impairment of global left ventricular systolic function with a calculated ejection fraction of 34%. 4. Moderate cardiomegaly. Job ID: [id number] DocumentID: [id number] Dictated Date: 03/17/2019 13:07:44 Clinique Counter Manager Date: 03/17/2019 15:33:10 Dictated By: MARILIA WRIGHT MD, MA, FACP, FACC,
== END ==
LOC: CARD 07:43
PROVIDERS: ATTEND Nurse Practitioner Family
DX: I25.10 Atherosclerotic heart disease of native coronary artery without angina pectoris (principal); I25.5 Ischemic cardiomyopathy; I11.0 Hypertensive heart disease with heart failure; I50.22 Chronic systolic (congestive) heart failure; R06.09 Other forms of dyspnea; I77.9 Disorder of arteries and arterioles, unspecified; E78.5 Hyperlipidemia, unspecified
CPT/HCPCS: 78452; 93017

== ENCOUNTER → 2021-04-12 | Outpatient (CLI) | payer MEDICARE ==
[~2021-04-12] VITALS: Ht 165 cm; Wt 68.0 kg
[~2021-04-12] MED LIST changes: +AMLO-250 PO; -AMLO5TAB9 PO; +ASPI-1238 PO; -ASPI-983 PO; -CATHETER FLUSH 10 ML SYR IV PRN; +CYAN-41 PO; -CYAN10006 PO
[2021-04-12] MEDS: CATHETER FLUSH 10 ML SYR IV PRN ×2 (08:55→09:53)
[2021-04-12 09:52] VITALS: BP 140/97
--- NOTE | 2021-04-12 15:56 | STRESS TEST ---
DATE OF SERVICE: 04/12/2021 RESTING AND POST REGADENOSON TECHNETIUM-99M TETROFOSMIN SPECT CT IMAGING ORDERING PHYSICIAN: Dr. Stevenson. PRIMARY PHYSICIAN: Dr. Hartley. CLINICAL DIAGNOSIS: Chest discomfort. Baseline images were carried out after injection of 9.18 mCi of technetium-99m Tetrofosmin. This was followed by 0.4 mg Regadenoson and 30 mCi of technetium-99m Tetrofosmin for stress imaging. The electrocardiogram showed sinus rhythm at baseline. It did not change significantly with the regadenoson infusion. There is left bundle branch block versus paced ventricular rhythm. Review of images at rest and following stress indicates a fixed lateral wall perfusion defect. There is lateral wall akinesis. There is global hypokinesis. Left ventricular ejection fraction is calculated to be 27%. Left ventricular end diastolic volume is 126 mL. TID is absent (1.04). CONCLUSIONS: 1. Lateral wall myocardial infarction without significant ischemia. 2. Lateral wall akinesis. 3. Global hypokinesis of left ventricle. 4. Left ventricular ejection fraction is calculated to be 27%. 5. Moderate cardiomegaly. Job ID: [id number] DocumentID: [id number] Dictated Date: 04/12/2021 14:57:01 Match Maker Date: 04/12/2021 15:55:47 Dictated By: MARILIA STEVENSON MD, MA, FACP, FACC,
== END ==
LOC: CARD 08:00
PROVIDERS: ATTEND Internal Medicine Cardiovascular Disease
DX: I51.7 Cardiomegaly (principal)
CPT/HCPCS: 78452; 93017; 93306; A9502

== ENCOUNTER 2022-04-21 05:38 | Outpatient (CLI) | payer MEDICARE ==
[~2022-04-21] VITALS: Ht 165.1 cm; Wt 70.3 kg
[~2022-04-21 05:38] MED LIST changes: -REGADENOSON 0.4 MG/5 ML SYR (LEXISCAN) IV ONE
[2022-04-21] MEDS ORDERED: BENA10TA66 PO (13:51)
[2022-04-21] MEDS ORDERED: GARL10002 PO (13:51)
[2022-04-21] MEDS ORDERED: DICL100G13 TP (13:51)
[2022-04-21] MEDS ORDERED: ZINC50TA51 PO (13:51)
[2022-04-21] MEDS ORDERED: INSU100V37 SQ (13:51)
[2022-04-21] MEDS ORDERED: APIX5TAB PO (13:51)
[2022-04-21] MEDS ORDERED: TUME1CAP PO (13:51)
[2022-04-21] MEDS ORDERED: DIGO250T3 PO (13:51)
[2022-04-21] MEDS ORDERED: PANT20TA18 PO (13:51)
[2022-04-21] MEDS ORDERED: CINN500C2 PO (13:51)
[2022-04-21] MEDS ORDERED: ASCO500C17 PO (13:51)
[2022-04-21] MEDS ORDERED: POTA99CA PO (13:51)
[2022-04-21] MEDS ORDERED: CHOL10004 PO (13:51)
== END 2022-04-21 14:02 | disposition home or self-care (01) ==
LOC: PREOP 05:38
PROVIDERS: ATTEND Internal Medicine
DX: Z01.818 Encounter for other preprocedural examination (principal)

== ENCOUNTER 2022-04-25 09:18 | Day surgery (SDC) | payer MEDICARE ==
--- NOTE | 2022-04-21 08:04 | HISTORY AND PHYSICAL ---
DATE OF SERVICE: HISTORY OF PRESENT ILLNESS: The patient is a spry 86-year-old white male, who reports he was doing well up until he was cutting some PVC pipe. He ended breathing and some aerosolized pipe with rather immediate throat irritation. Since that time, he has noted some dysphagia to solids. He is not having any difficulty with liquids. He has had some mild discomfort and some mild odynophagia. This occurred roughly 2 weeks ago with resolution of burning throat symptoms, but persistent dysphagia to solids. In the past, he has had a history of erosive esophagitis and stricture requiring dilatation. He last underwent EGD evaluation per his report around 2007. He does not report a history of Salas's. I had performed an EGD on him in 2013, at which time he did not have evidence for erosive esophagitis and did not require dilatation at that time. He reports no change in weight. Has had no abdominal pain and no melena or bright red blood per rectum. He had no evidence for Salas's in 2013. PAST MEDICAL HISTORY: Significant for ischemic heart disease, status post bypass surgery in 1999. Reports he had one stent placed in 2018. No cardiac problems since. He has a history of type 2 diabetes and hypertension. FAMILY HISTORY: He is not aware of any family history for GI tract malignancy or inflammatory bowel disease. SOCIAL HISTORY: He is retired [id number] smoking history, but quit after bypass surgery in 1999. No significant ethanol intake history. REVIEW OF SYSTEMS: CONSTITUTIONAL: Denies night sweats, chills, fever or change in weight. GASTROINTESTINAL: As noted in the HPI. PULMONARY: Denies cough, wheezing. He does feel short of breath when he is bending over to tie his shoes, but this has not changed for him. He has some mild dyspnea on exertion without chest discomfort. CARDIAC: Denies orthopnea, PND, or pedal edema. PHYSICAL EXAMINATION: GENERAL: Reveals a pleasant white male, appeared to be in no acute distress. HEENT: Unremarkable. Sclerae nonicteric. VITAL SIGNS: Weight 160, blood pressure 130/78. CHEST: Clear to auscultation. CARDIOVASCULAR: Reveals a regular rate and rhythm without significant murmur, S3 or S4. ABDOMEN: Soft, supple without mass, organomegaly or tenderness. EXTREMITIES: Reveal no cyanosis, clubbing or edema. ASSESSMENT: The patient is being set up for EGD evaluation for dysphagia to solids. He was advised to hold Plavix starting this Thursday, so that he is off the medication for a week and he will hold Eliquis that he takes for paroxysmal atrial fibrillation 48 hours prior to the procedure. I thank you for the referral of this pleasant gentleman. Job ID: [id number] DocumentID: [id number] Dictated Date: 04/16/2022 16:55:32 Fire Systems Inspector Date: 04/16/2022 17:16:58 Dictated By: ANGIE KOHLI MD
[~2022-04-25] VITALS: Ht 165 cm; Wt 70.3 kg
[~2022-04-25 09:18] MED LIST changes: +APIX5TAB PO; +ASCO500C17 PO; +BENA10TA66 PO; +CHOL10004 PO; +CINN500C2 PO; +DICL100G13 TP; +DIGO250T3 PO; +GARL10002 PO; +INSU100V37 SQ; +PANT20TA18 PO; +POTA99CA PO; +TUME1CAP PO; +ZINC50TA51 PO
[2022-04-25] MEDS ORDERED: LACTATED RINGERS 1,000 ML IV STA (09:21)
[2022-04-25] MEDS ORDERED: HURRICAINE EXT TUBE (BENZOCAINE) XX PRN (09:30)
[2022-04-25 09:50] VITALS: BP 143/89
--- NOTE | 2022-04-25 10:18 | Pre-Op Note & Conscious Sedat ---
Pre-Operative Progress Note H&P Reviewed The H&P was reviewed, patient examined and no changes noted. Date H&P Reviewed: Apr 25, 2022 Time H&P Reviewed: 10:18 Conscious Sedation Pre-Proced ASA Score 3 For ASA 3 and 4: Consider anesthesia and medical clearance. Also, for patients with a history of failed moderate sedation consider anesthesia. Airway Lungs Heart ASA score ASA 1: a normal healthy patient ASA 2: a patient with a mild systemic disease (mid diabetes, controlled hypertension, obesity ASA 3: a patient with a severe systemic disease that limits activity (angina, COPD, prior Myocardial infarction) ASA 4: a patient with an incapacitating disease that is a constant threat to life (CHF, renal failure) ASA 5: a moribund patient not expected to survive 24 hrs. (ruptured aneurysm) ASA 6: a declared brain- patient whose organs are being harvested. For emergent operations, add the letter E after the classification Mallampati Classification Grade 2 Sedation Plan Analgesia, Amnesia, Plan communicated to team members, Discussed options with patient/fam, Discussed risks with patient/fam The patient is an appropriate candidate to undergo the planned procedure, sedation, and anesthesia. The patient immediately re-assessed prior to indication. ANGIE KOHLI MD Apr 25, 2022 10:18
[2022-04-25] MEDS ORDERED: proPOfol 200 MG/20 ML (DIPRIVAN) VIAL IV ONE (10:50)
[2022-04-25 11:05] VITALS: BP 105/63
[2022-04-25 11:10] VITALS: BP 100/62
[2022-04-25 11:15] VITALS: BP 114/68
[2022-04-25 11:40] VITALS: BP 128/79
--- NOTE | 2022-04-25 12:31 | Anesthesia-General Post-Op ---
MAC Patient Condition Mental Status/LOC: Same as Preop Cardiovascular: Satisfactory Nausea/Vomiting: Absent Respiratory: Satisfactory Pain: Controlled Complications: Absent Post Op Complications Complications None Follow Up Care/Instructions Patient Instructions None needed. Anesthesiology Discharge Order Discharge Order Patient was doing well after the procedure, no complaints, stable vital signs, no apparent adverse anesthesia problems. No complications reported per nursing. SUSSY BOYLE 10, 2022 12:31
--- NOTE | 2022-04-25 16:17 | OPERATIVE REPORT ---
DATE OF SERVICE: EGD SUMMARY INDICATION FOR THE PROCEDURE: Dysphagia. DESCRIPTION OF PROCEDURE: The patient was placed in the left lateral decubitus position. The endoscope was inserted in the oral cavity and under direct visualization, the esophagus was intubated. The scope was passed down the esophagus through the stomach into the second portion of the duodenum. A careful inspection was made as the endoscope was withdrawn. FINDINGS: The posterior pharynx, epiglottis, arytenoid aperture and true and false vocal folds were unremarkable to visual inspection. The proximal, mid and distal esophagus were unremarkable. There was a sliding hiatal hernia present with no evidence for rings, webs, strictures or Salas's change. No ulceration or inflammatory change was noted. The cardia, fundus, antrum, pylorus, pyloric channel, duodenal bulb and second portion of the duodenum were unremarkable. ASSESSMENT: Small sliding hiatal hernia was present with an otherwise unremarkable EGD. There was no evidence for erosive esophagitis, intrinsic or extrinsic compression. Discussed the importance of careful attention to mastication and slowing down eating time. The patient was reassured by today's findings. I thank you for the referral of this pleasant gentleman. Job ID: [id number] DocumentID: [id number] Dictated Date: 04/25/2022 11:03:51 Aeronautical Design Engineer Date: 04/25/2022 16:16:34 Dictated By: ANGIE KOHLI MD
== END 2022-04-25 11:50 | disposition home or self-care (01) ==
LOC: ENDO 09:18
PROVIDERS: ATTEND Internal Medicine
DX: K44.9 Diaphragmatic hernia without obstruction or gangrene (principal); I48.0 Paroxysmal atrial fibrillation; Z95.1 Presence of aortocoronary bypass graft; Z95.5 Presence of coronary angioplasty implant and graft; Z87.891 Personal history of nicotine dependence; Z79.02 Long term (current) use of antithrombotics/antiplatelets; Z79.01 Long term (current) use of anticoagulants

== ENCOUNTER → 2023-03-27 | Outpatient (CLI) | payer MEDICARE | LOC: CARD 12:28 | PROVIDERS: ATTEND Internal Medicine Cardiovascular Disease | DX: I08.1 Rheumatic disorders of both mitral and tricuspid valves (principal); I25.5 Ischemic cardiomyopathy | CPT/HCPCS: 93306 ==